=== PATIENT | male | born 1965 | race Caucasian/White ===

== ENCOUNTER 2019-05-05 05:55 | Emergency (ER) | payer OTHER ==
[~2019-05-05] VITALS: Ht 177.8 cm; Wt 99.0 kg
[2019-05-05 05:59] VITALS: Ht 177.8 cm; Wt 99.0 kg
[2019-05-05] MEDS ORDERED: ONDANSETRON 4 MG INJ IV STA (06:11)
[2019-05-05] MEDS ORDERED: morphine 4 MG/ML VIAL IV STA (06:11)
[2019-05-05] MEDS ORDERED: SOD CHLORIDE 0.9% 1,000 ML IV STA (06:11)
--- NOTE | 2019-05-05 06:43 | ERD ---
ER Documentation Chief Complaint Chief Complaint bib ra from home for cp, given 1 spray of nitro, 325 mg aspirin HPI Translation services were utilized during the patient's encounter Language: Aremenian Source: In person 53-year-old male who presents to the emergency room complaining of chest pain. He states around 4 AM this morning he started to have substernal chest pressure rating to the upper left shoulder. He states the pain is pressure-like. Nonpleuritic. Patient describes a history of pericarditis with similar symptoms 1 year ago. No preceding viral syndrome currently. Patient denies any mid back pain or ripping or tearing sensation. He did describe some nausea and diaphoresis with this. Patient given aspirin and nitroglycerin in the field with mild improvement. ROS All systems reviewed and are negative except as per history of present illness. Medications Home Meds Reported Medications Nicotine* (Nicotine* Patch) 7 mg/day Patch, 1 PATCH TOP DAILY 05/05/19 Indomethacin* (Indocin*) 50 Mg Cap, 1 CAP ORAL BID 05/05/19 Bupropion Hcl (Bupropion Hcl SR) 150 Mg Tablet.sa, 1 TAB ORAL BID 05/05/19 Metformin* (Glucophage*) 500 Mg Tab, 1 TAB ORAL BID 05/05/19 [place]-3 Fatty Acids ([place]-3) 1,000 Mg Capsule, 1 CAP ORAL BID 05/05/19 Allergies Allergies: Coded Allergies: No Known Allergy (Unverified , 05/05/19) Physical Exam Vitals Vital Signs Date Temp Pulse Resp B/P (MAP) Pulse Ox O2 O2 Flow FiO2 Time Delivery Rate 05/05/19 Nasal 2 06:39 Cannula 05/05/19 98.3 88 19 117/83 100 05:59 (94) Physical Exam Const: No acute distress Head: Atraumatic Eyes: Normal Conjunctiva ENT: Normal External Ears, Nose and Mouth. Neck: Full range of motion. No meningismus. Resp: Clear to auscultation bilaterally Cardio: Regular rate and rhythm, no murmurs Abd: Soft, non tender, non distended. Normal bowel sounds Skin: No petechiae or rashes Back: No midline or flank tenderness Ext: No cyanosis, or edema Neur: Awake and alert Psych: Normal Mood and Affect Result Diagram: 05/05/1962405/05/19624 Results 24 hrs Laboratory Tests Test 05/05/19 06:25 White Blood Count 13.2 10^3/ul Red Blood Count 4.90 10^6/ul Hemoglobin 14.5 g/dl Hematocrit 43.3 % Mean Corpuscular Volume 88.4 fl Mean Corpuscular Hemoglobin 29.6 pg Mean Corpuscular Hemoglobin Concent 33.5 g/dl Red Cell Distribution Width 12.7 % Platelet Count 315 10^3/UL Mean Platelet Volume 10.0 fl Immature Granulocytes % 0.800 % Neutrophils % 62.2 % Lymphocytes % 25.9 % Monocytes % 7.7 % Eosinophils % 2.6 % Basophils % 0.8 % Nucleated Red Blood Cells % 0.0 /100WBC Immature Granulocytes # 0.110 10^3/ul Neutrophils # 8.2 10^3/ul Lymphocytes # 3.4 10^3/ul Monocytes # 1.0 10^3/ul Eosinophils # 0.3 10^3/ul Basophils # 0.1 10^3/ul Nucleated Red Blood Cells # 0.0 10^3/ul Prothrombin Time 12.7 Sec Prothrombin Time Ratio 1.0 INR International Normalized Ratio 0.94 Activated Partial Thromboplast Time 24.1 Sec Sodium Level 140 mmol/L Potassium Level 3.9 mmol/L Chloride Level 107 mmol/L Carbon Dioxide Level 23 mmol/L Anion Gap 10 Blood Urea Nitrogen 18 mg/dl Creatinine 1.02 mg/dl Est Glomerular Filtrat Rate mL/min > 60 mL/min Glucose Level 149 mg/dl Calcium Level 9.0 mg/dl Troponin I < 0.012 ng/ml Current Medications Medications Dose Sig/Santino Start Time Status Last (Trade) Ordered Route PRN Stop Time Admin Dose Reason Admin Sodium 1,000 ml @ Q1H STAT 05/05/19 DC 05/05/19 Chloride 1,000 mls/hr IV 06:11 05/05/19 06:33 07:10 Morphine 4 mg ONCE STAT 05/05/19 DC 05/05/19 Sulfate IV 06:11 05/05/19 06:33 (morphine) 06:13 Ondansetron 4 mg ONCE STAT 05/05/19 DC 05/05/19 HCl (Zofran IV 06:11 05/05/19 06:33 Inj) 06:13 IV Flush 10 ml STK-MED 05/05/19 DC 05/05/19 (NS 10 ml) ONCE .ROUTE 07:20 05/05/19 07:42 07:21 Sodium 100 ml @ ud STK-MED 05/05/19 DC 05/05/19 Chloride ONCE .ROUTE 07:20 05/05/19 07:42 07:21 Iohexol 100 ml @ ud STK-MED 05/05/19 DC 05/05/19 ONCE .ROUTE 07:20 05/05/19 07:42 07:21 Iohexol 50 ml STK-MED 05/05/19 DC 05/05/19 (Omnipaque ONCE .ROUTE 07:27 05/05/19 07:42 350mg/ ml) 07:28 Famotidine 20 mg ONCE STAT 05/05/19 DC 05/05/19 (Pepcid) PO 08:03 05/05/19 08:15 08:04 40 ml ONCE STAT 05/05/19 DC 05/05/19 Miscellaneous PO 08:03 05/05/19 08:15 Medication 08:04 (Gi Cocktail (2)) Belladonna/ 2 tab ONCE STAT 05/05/19 DC 05/05/19 Phenobarbital PO 08:03 05/05/19 08:15 () 08:04 Procedures/MDM EKG, MONITORS, & DIAGNOSTIC IMAGING: EKG: I reviewed and interpreted a 12-lead EKG. Rhythm: Normal sinus rhythm ST Changes: No contiguous ST segment elevations T waves: No contiguous T wave inversions Impression: [No evidence of acute cardiac ischemia] Repeat EKG: EKG: I reviewed and interpreted a 12-lead EKG. Rhythm: Normal sinus rhythm ST Changes: Subtle ST segment elevations without reciprocal changes T waves: No contiguous T wave inversions Impression: Dynamic EKG Chest x-ray: I reviewed and interpreted a 1 view of the chest Mediastinum: No enlargement Cardiac silhouette: No cardiomegaly Airspace: Clear lung ayers bilaterally without evidence of pneumothorax Bones: No evidence of fracture CT chest: No dissection or pulmonary embolism per radiologist report PROCEDURES: [None] LAB INTERPRETATION: * Negative troponin, repeat pending MEDICAL DECISION MAKING: The patient's history, physical exam and clinical presentation is concerning for possible cardiogenic etiology and acute coronary syndrome. Alternative diagnoses include gastroesophageal reflux. Is reassuring that the patient is describing what appears to be a clean angiogram within the past year that was unremarkable. The patient describes a history of pericarditis but does not have positional symptoms. Patient does have some migratory component raising the concern for possible dissection. The patient appears diaphoretic and uncomfortable. CT of the chest would be indicated. Based on the patient's clinical exam and history and risk factors, I have a much lower clinical concern for pulmonary embolism, narrowing 14 pneumothorax, pneumonia, cardiac tamponade ER COURSE: * The patient received aspirin and nitroglycerin prior to the patient's arrival. The patient was given morphine. * The patient had persistent pain and given a GI cocktail with moderate improvement. CTA is negative. * Repeat EKG is concerning for ST segment elevation but no reciprocal changes. This could be lead placement, early repolarization, pericarditis among others. However given the patient's persistent symptoms concern for ACS exist. It would seem less likely given reported recent angiogram but not impossible. Upwards of 4% of patients will have ST elevation myocardial infarctions within 1 year of clean angiogram. * Because of the patient's EKG changes I discussed the case with 1 of our supervisor mold cleaning and storage, Dr. Davalos. He reviewed the case as well as the EKGs. He agrees that this does not meet STEMI criteria but is concerning given persistent symptoms and the fact that the patient appeared ill and diaphoretic initially. He recommends transfer to [facility]. * It should be noted that my [facility] is not operational at this time. * I was able to speak to Dr. Robertson at 8:54 AM, on-call parking analyst at [facility]. We reviewed the case. He is accepted the case and is requesting a repeat troponin and ER to ER interfacility transfer. * I spoke to the ER physician Dr. Silveira, at 9 AM. He is accepted the case. * Patient's chest pain is improving. ALS transportation will be arranged for higher level of care. CONSULTATION: Supervisor Road Administrator as documented above DISPOSITION PLAN: Transfer to ER facility at [facility] for higher level of care. Critical Care Note: Total time: 45 minutes Indication/Organ System Threat: Possible ACS I spent the above amount of critical care time with the patient, not including billable procedures. This included chart review, consultations, repeat bedside evaluations, and titration of appropriate medications to prevent cardiopulmonary or respiratory collapse. Departure Diagnosis: Primary Impression: Acute coronary syndrome Additional Impression: Chest pain Chest pain type: unspecified Qualified Codes: R07.9 - Chest pain, unspecified Condition: CONOR Alves MD May 05, 2019 06:43
[2019-05-05] MEDS ORDERED: SOD CHLORIDE 0.9% 100 ML ONE (07:20)
[2019-05-05] MEDS ORDERED: IOHEXOL 100 ML ONE (07:20)
[2019-05-05] MEDS ORDERED: IOHEXOL 350MG/ML 50 ML BTL ONE (07:27)
[2019-05-05] MEDS ORDERED: BELLADONNA/PHENOBARBITAL TAB PO STA (08:03)
[2019-05-05] MEDS ORDERED: FAMOTIDINE 20 MG TAB PO STA (08:03)
[2019-05-05] MEDS ORDERED: LIDOCAINE/MYLANTA 40 ML BTL PO STA (08:03)
[2019-05-05] MEDS ORDERED: NICO-544 TOP (08:11)
[2019-05-05] MEDS ORDERED: METF-849 ORAL (08:11)
[2019-05-05] MEDS ORDERED: INDO-39 ORAL (08:11)
[2019-05-05] MEDS ORDERED: OMEG100016 ORAL (08:11)
[2019-05-05] MEDS ORDERED: BUPR150T11 ORAL (08:11)
[2019-05-05 10:32] VITALS: BP 106/76; PULSE 76; RESP 24
== END 2019-05-05 10:55 | disposition short-term general hospital (02) ==
LOC: E/R 05:55
DX: I24.9 Acute ischemic heart disease, unspecified (principal); Z79.84 Long term (current) use of oral hypoglycemic drugs
CPT/HCPCS: 71045; 71275; 80048; 84484; 85025; 85610; 85730; 93005; J2270; J2405; J7030; Q9967; Z7610; 36415; 96361; 96374; 96375